=== PATIENT | female | born 1955 | race Hispanic/Latino ===

== ENCOUNTER 2016-12-06 17:20 | Inpatient (IN) ==
[2016-12-06] MEDS ORDERED: TYLENOL LIQUID PO ONE (18:04)
[2016-12-06 18:39] LABS: BASO% 0.3 % (0.0-0.8); EOS# 0.05 X1000 (0.0-0.7); EOS% 0.3 % (0.0-10.0); HEMOGLOBIN 12.8 g/dL (12.0-16.0); IMM GRAN# 0.04 X1000 (0.0-0.04); IMM GRAN% 0.2 % (0.0-0.5); LYMPH# 1.46 X1000 (1.2-3.4); LYMPH% 8.4 % (20.5-51.1); MANUAL DIFF NEEDED? NO; MCH 30.4 PG (27-31); MCHC 33.7 g/dL (33-37); MCV 90.3 FL (81-99); MONO# 0.62 X1000 (0.11-0.59); MONO% 3.6 % (1.7-9.3); MPV 9.9 FL (7.4-10.4); NEUT% 87.2 % (42.2-75.2); PLT 275 X1000 (130-400); RBC 4.21 XMIL (4.2-5.4)
[2016-12-06 18:54] LABS: URINE CULTURE NEEDED? NO; URINE MICRO REVIEW NEEDED? NO; URINE SOURCE CLEAN CATCH
[2016-12-06] MEDS ORDERED: NS 500 ML IV ONE (18:59)
[2016-12-06 19:00] LABS: BILIRUBIN URINE NEGATIVE (NEGATIVE); BLOOD URINE NEGATIVE (NEGATIVE); COLOR STRAW; GLUCOSE URINE NEGATIVE (NEGATIVE); LEUKOCYTES URINE NEGATIVE (NEGATIVE); NITRITE URINE NEGATIVE (NEGATIVE); PROTEIN URINE NEGATIVE (NEGATIVE); SP GRAVITY URINE 1.004; TURBIDITY URINE CLEAR (CLEAR); UROBILINOGEN URINE NORMAL (NORMAL)
[2016-12-06 19:01] LABS: UR EPITHELIAL CELLS <10 /HPF (<10); URINE BACTERIA NEGATIVE /HPF; URINE RBC <10 /HPF (<10); URINE WBC <10 /HPF (<10)
[2016-12-06 19:02] LABS: AGAP 14; ALBUMIN 4.6 g/dL (3.5-5.0); ALKALINE PHOSPHATASE 110 U/L (32-104); AMYLASE 54 U/L (20-200); BUN 10 mg/dL (8-22); CALCIUM 9.5 mg/dL (8.8-10.2); CHLORIDE 94 mmol/L (98-107); COSMO 271; GOT 21 U/L (10-30); GPT 19 U/L (10-36); LIPASE 27 U/L (13-60); POTASSIUM 3.4 mmol/L (3.5-5.1); SODIUM 134 mmol/L (136-145); TCO2 26 mmol/L (25-35); TOTAL BILIRUBIN 0.43 mg/dL (0.20-1.00); TOTAL PROTEIN 8.2 g/dL (6.3-8.3)
--- NOTE | 2016-12-06 19:38 | Diag Imaging Result Doc PS360 ---
RENAL STONE SEARCH - 12/06/2016 INDICATION: right flank pain, suprapubic pain, fever TECHNIQUE: A CT dose reduction protocol was used. COMPARISON: 02/21/2011 FINDINGS: No radiodense renal stones. No hydronephrosis or hydroureter. No bowel obstruction or inflammation. Uterus is absent. Urinary bladder and rectum are normal. There are moderate degenerative changes of the spine. No acute or suspicious bony lesion. IMPRESSION: No acute disease. Electronically signed by Ebenezer Resendez 12/06/2016 7:36 PM
[2016-12-06] MEDS ORDERED: ZOFRAN IV ONE ×2 (19:39→20:47)
[2016-12-06] MEDS ORDERED: DILAUDID ONE (20:33)
[2016-12-06] MEDS ORDERED: ZOFRAN ONE (20:33)
[2016-12-06] MEDS ORDERED: DILAUDID IV ONE (20:46)
[2016-12-06 21:38] LABS: UR AMPHETAMINES QUAL NONE DETECTED (NONE DETECT); UR BARBITUATES QUAL NONE DETECTED (NONE DETECT); UR BENZODIAZEPIN QUAL NONE DETECTED (NONE DETECT); UR CANNABINOIDS QUAL NONE DETECTED (NONE DETECT); UR COCAINE QUAL NONE DETECTED (NONE DETECT); UR METHADONE QUAL NONE DETECTED (NONE DETECT); UR OPIATES QUAL NONE DETECTED (NONE DETECT); UR OXYCODONE QUAL NONE DETECTED (NONE DETECT); UR PCP QUAL NONE DETECTED (NONE DETECT)
--- NOTE | 2016-12-06 21:44 | PROVIDER DOCUMENTATION ---
This chart was entered by Brad Busch Scribe, acting as scribe for Hang Zeng PA. HPI-Female /OB/Breast - General Chief Complaint: N/V/D Stated Complaint: VOMITING Time Seen by Provider: 12/06/16 18:31 Source: reports: patient Allergies/Adverse Reactions: Patient Allergies Allergy/AdvReac Type Severity Reaction Status Date / Time No Known Allergies Allergy Verified 02/28/16 19:37 Home Medications: Home Medication List Medication Instructions Recorded Confirmed Last Taken Type ATORVAstatin [Lipitor] 40 mg PO HS 11/10/12 12/07/16 2 Days Ago History Metformin [Glucophage] 2,000 mg PO HS 11/10/12 12/07/16 2 Days Ago History Zolpidem [Ambien] 10 mg PO QHS 11/10/12 12/07/16 1 Day Ago History Insulin Glargine [Lantus] 18 unit SUBQ QHS 04/24/14 12/07/16 2 Days Ago History Gabapentin 300 mg PO HS 10/26/14 12/07/16 2 Days Ago History Ondansetron [Ondansetron Odt] 4 mg PO Q4H PRN PRN #15 tab.rapdis 10/26/14 1 Day Ago Rx Butalb/APAP/Caffeine [Fioricet] 1 each PO Q4H PRN PRN #30 capsule 04/14/1512/07 Unknown Rx Malcolm/Polymyx/Dexameth Oph Oint 1 applicatn RIGHT EYE 4XDAY #1 tube 04/14/1512/07 Unknown Rx [Maxitrol Eye Ointment] - History of Present Illness-Female /OB Nature of Presenting Problem: Pt is a 60 yohf who presents to ER with CC of suprapubic pain with N/V/D x2 days. Pt reports that she has had a known UTI for the past 3 months. Pt states that she developed N/V 2 days ago and developed fever yesterday (temperature unspecified). Pt also complains of dysuria, but states that she had had for a while. No further complaints at this time. Does patient report she is ?: No Location of complaint: reports: right flank Radiation: reports: suprapubic Quality of Pain: reports: aching, burning Severity in ED: reports: moderate Onset/Duration: reports: 2 days ago Timing: reports: still present Urinary Symptoms: reports: dysuria Associated Symptoms: reports: back/neck pain (right flank), diarrhea, fever/ chills, malaise, nausea, vomiting. denies: anxiety, chest pain, constipation, dizziness, joint pain, muscle aches, weakness, trouble walking Similar Symptoms Previously?: Yes Recently seen or treated by another doctor?: No Review of Systems - Adult - REVIEW OF SYSTEMS - ADULT Constitutional: reports: fever. denies: chills, fatique, night sweats, weight gain, weight loss Eyes: reports: no symptoms reported Ears, Nose, Mouth & Throat: reports: no symptoms reported Cardiovascular: reports: no symptoms reported Respiratory: reports: no symptoms reported Gastrointestinal: reports: abdominal pain, diarrhea, nausea, vomiting. denies: hematemesis, constipation, difficulty swallowing, frequent heartburn, poor appetite, rectal bleeding Genitourinary: reports: dysuria, flank pain, frequent UTI's. denies: discharge , frequency, hematuria, hesitency, incontinence, urinary retention, urgency Musculoskeletal: reports: no symptoms reported Integumentary: reports: no symptoms reported Neurological: reports: headache/migraines. denies: ataxia, dizziness/vertigo, loss of balance, numbness, paresthesia, seizure, slurred speech, syncope, tremors Psychiatric: reports: no symptoms reported Endocrine: reports: no symptoms reported Hematologic/Lymphatic: reports: no symptoms reported Allergic/Immunologic: reports: no symptoms reported All Other Systems: Reviewed and Negative Past History - Adult - PAST MEDICAL HISTORY-ADULT Review of Records: reports: Old Records Reviewed, Nursing Assessment Review, Medications Reviewed Cardiovascular: reports: HTN, hyperlipidemia Endocrine/Immune: reports: Diabetes - PRIOR SURGERIES/PROCEDURES Surgical/Procedure History: reports: appendectomy, hysterectomy, BTL, , other (breast bx) - IMMUNIZATION STATUS Childhood Immunizations: See Nurse Assessment Flu Vaccine: See Nurse Assessment - FAMILY HISTORY Family History: reviewed, not pertinent Physical Exam-General - PHYSICAL EXAM-ADULT Initial Vital Signs Reviewed: Yes - CONSTITUTIONAL General Appearance: appears well, alert, moderate distress - EYES Eyes: PERRL/EOMI, pink conjunctivae. negative: sclera injected, scleral icterus - HEAD, EARS, NOSE, MOUTH & THROAT HENMT: moist mucous membranes, TMs normal, pharynx normal, dental decay, other ( OE in the left ear, had a cotton ball in the ear. Pt also has soft tissue swelling in the occiputal area of scalp. No signs of laceration). negative: angioedema - NECK Neck: full range of motion (has pain with flexion), normal inspection. negative : trachial deviation, tender lateral, thyromegaly - RESPIRATORY Respiratory: chest non-tender, lungs clear, normal breath sounds, no pleuratic chest pain, no respiratory distress, no accessory muscle use. negative: respiratory distress, decreased breath sounds, accessory muscle use, wheezing - CARDIOVASCULAR Cardiovascular: normal peripheral pulses, no edema, no gallop, no JVD, no murmur , tachycardia. negative: regular rate, rhythm, bradycardia, irregularly irregular - GASTROINTESTINAL (ABDOMEN) Abdominal Exam: soft, no organomegaly, no pulsatile mass, abnormal bowel sounds (mildly hyperactive), tenderness (suprapubic). negative: normal bowel sounds, non tender, McBurney's point tenderness, Kramer's sign - LYMPHATIC Lymphatic: negative: cervical node tenderness - MUSCULOSKELETAL Back Exam: no vertebral tenderness, CVA tenderness (right). negative: no CVA tenderness, vertebral tenderness Extremity: normal range of motion, non-tender, normal gait, no pedal edema, no calf tenderness, normal capillary refill, pelvis stable. negative: deformity, erythema, inflammation, swelling, tenderness - SKIN Integumentary: normal color, warm/dry - NEUROLOGIC Neurologic: grossly normal - PSYCHIATRIC Psych/Mental Status: normal thought content, normal thought process, oriented x 3, anxious, tearful. negative: normal mood/affect Progress - PLAN OF CARE/RESULTS Progress/Plan/Lab Results: Orders Category Date Time Status Admit - [facility] Routine AdmDCTranf 12/06/16 23:16 Ordered Activity - Strict Bedrest ORDERED Care 12/06/16 23:16 Active FSBS/Accucheck Result AC + HS Care 12/06/16 23:16 Active Intake and Output-Strict ORDERED Care 12/06/16 23:16 Active Saline Loc DIRECTED Care 12/06/16 17:50 Completed Vital Signs Order Q6-HR ASSESS Care 12/06/16 23:16 Active Z-Document. for Tele Applied ORDERED Care 12/06/16 23:16 Completed NPO Diet 12/06/16 17:[address] ABD/PELVIS W/ IV CONT ONLY [CT] Stat Exams 12/06/16 20:46 Completed HEAD W/O CONTRAST [CT] Stat Exams 12/06/16 20:46 Completed RENAL STONE SEARCH [CT] Stat Exams 12/06/16 18:59 Completed A1C HGB W EST AVG GLUCOSE [CHEM] Routine Lab 12/06/16 18:03 Completed AMYLASE [CHEM] Stat Lab 12/06/16 18:03 Completed BASIC METABOLIC PANEL [CHEM] Routine Lab 12/07/16 05:50 Completed BLOOD CULTURE [BLDCUL] Stat Lab 12/06/16 21:13 Results CBC WITH DIFF [HEME] Routine Lab 12/07/16 05:50 Completed CBC WITH ELECTRONIC DIFF [HEME] Stat Lab 12/06/16 18:03 Completed COMPREHENSIVE METABOLIC PANEL [CHEM] Stat Lab 12/06/16 18:03 Completed LACTATE, PLASMA [CHEM] Stat Lab 12/06/16 18:03 Completed LIPASE [CHEM] Stat Lab 12/06/16 18:03 Completed LIPID PROFILE W/CALC LDL [LIPIDS] Routine Lab 12/06/16 18:03 Completed MAGNESIUM [CHEM] Routine Lab 12/07/16 05:50 Completed TSH Routine Lab 12/07/16 05:50 Completed UDS [URINE DRUG SCREEN] Stat Lab 12/06/16 18:46 Completed URINALYSIS W/POSS RFLX CULT-1 [URINALYSIS] Stat Lab 12/06/16 18:46 Completed 0.9% Sodium Chloride Inj [Ns] 1,000 ml Med 12/06/16 23:16 Active IV 80 mls/hr 0.9% Sodium Chloride Inj [Ns] 500 ml Med 12/06/16 18:59 Discontinued IV 999 mls/hr Acetaminophen Liquid [Tylenol Liquid] Med 12/06/16 18:04 Discontinued 650 mg PO NOW ONE Acetaminophen [Tylenol] Med 12/06/16 23:16 Active 650 mg PO Q6H PRN PRN Butalbital/APAP/Caffeine [Fioricet] Med 12/06/16 23:16 Active 1 each PO Q4H PRN PRN CefTRIAXONE 1 GM/NS [Rocephin 1 gm/Ns] Med 12/07/16 09:00 Discontinued 1 gm in 50 ml IV Q24H CefTRIAXONE 2 GM/NS [Rocephin 2 gm/Ns] Med 12/06/16 22:10 Discontinued 2 gm in 50 ml IV NOW Enoxaparin [Lovenox] Med 12/06/16 23:16 Discontinued 40 mg SUBQ Q24H Hydromorphone [Dilaudid] Med 12/06/16 20:46 Discontinued 0.5 mg IV NOW ONE Hydromorphone [Dilaudid] Med 12/06/16 20:33 Discontinued 2 mg .ROUTE .STK-MED ONE Insulin Lispro [Humalog] Med 12/07/16 07:00 Active See Protocol SUBQ 0700,1100,1600,2100 Morphine Med 12/06/16 23:16 Active 2 mg IV Q4H PRN PRN Ondansetron [Zofran] Med 12/06/16 20:33 Discontinued 4 mg .ROUTE .STK-MED ONE Ondansetron [Zofran] Med 12/06/16 19:39 Discontinued 4 mg IV NOW ONE Ondansetron [Zofran] Med 12/06/16 20:47 Discontinued 4 mg IV NOW ONE Ondansetron [Zofran] Med 12/06/16 23:16 Active 4 mg IV Q4H PRN PRN Pantoprazole [Protonix] Med 12/06/16 23:16 Active 40 mg IV Q24H Potassium Chloride 20 Meq/Swi Med 12/06/16 23:16 Discontinued 20 meq in 100 ml IV Q2H Sodium Chloride 0.9% Med 12/06/16 23:16 Active 10 ml INJ DIRECTED Vancomycin 1 gm/Ns Med 12/06/16 22:09 Discontinued 1 gm in 250 ml IV NOW Telemetry [OM.EQ] Routine Oth 12/06/16 23:16 Active Transfer/Admit Order [TRANSFER] Routine Transfer 12/06/16 22:10 Completed Result Diagrams: 12/09/16 06:30 12/09/16 06:30 - REASSESSMENT Reassessment #1 Time Reassessed: 20:07 (Discussed with Dr. Hernandez. Pt is complaining of severe headache, and stating that something is coming out of her vaginal area ( speaking with JEREMY Butts). Continues ot ask for something for her terrible ROSE. Pt has normal UA and renal CT. Dr. Hoang recommends admission for evaluation with a head CT and abd/pelvis with contrast at samem time instead of doing one at a time. WIll empirically treat with abx as pt is tachycardic, febrile, with leukocytosis. ) Reassessment #2 Time Reassessed: 20:38 (Dr. Hernandez at bedside. Pt is urinating on herself and writhing in pain. Has progressed since coming to the ED. Thinks needs an LP but should discuss with Dr. Gan) Reassessment #3 Time Reassessed: 21:43 (Dr. Gan SAND CONDITIONER (Leonel) at bedside for evaluation. Waiting for reports from CT scan for admission. ) - CT/MRI 1 CT Study: Renal Stone Impression: See EMR Report CT Results: No acute disease - Dr. Resendez (Radiologist) - CONSULTS/PCP/HOSPITALIST Notification #1 *Consult/PCP/Hospitalist*: Time Discussed: 20:46 (Order head CT and CT abdomen/pelvis w contrast and his SAND CONDITIONER will come down to see the pt. ) Consult Disposition: Will see in ED, Admit Departure - Departure Date of Disposition Decision: 12/06/16 Time of Disposition Decision: 21:44 DIAGNOSIS: Tachycardia Incontinence Qualifiers: Incontinence type: urinary Urinary Incontinence type: unspecified incontinence Qualified Code(s): R32 - Unspecified urinary incontinence Febrile Qualifiers: Fever type: unspecified Qualified Code(s): R50.9 - Fever, unspecified Abdominal pain Qualifiers: Abdominal location: unspecified location Qualified Code(s): R10.9 - Unspecified abdominal pain Disposition: ADMITTED INPATIENT 09 Certified Medical Emergency: Emergent Condition: Fair - Critical Care Note This patient required my direct & personal management of CC.: No Attestation - Physician/ CALISTA Attestation Patient care was provided by Advanced Practice Provider:: Yes Advanced Practice Provider:: Hang Zeng Advanced Practice Provider documentation review:: The Mid-level provider documentation, treatment plan and medical decision making was reviewed by the physician who agrees with all treatment and medical decision making by the MLP. The physician spent face to face time with patient:: Yes Advanced Practice Provider documentation review:: The physician spent face to face time with this patient and agrees with all MLP documentation, treatment, and medical decision making by the MLP. See provider notes for further information. This chart was documented by the indicated scribe, (Brad Busch Maritza) and accurately reflects the services I performed and decisions made by me, Hang Zeng PA, as attested by the provider's signature.
--- NOTE | 2016-12-06 21:51 | Diag Imaging Result Doc PS360 ---
HEAD W/O CONTRAST - 12/06/2016 INDICATION: severe ROSE, ear pain, swelling occiput TECHNIQUE: A CT dose reduction protocol was used. COMPARISON: 04/14/2015 FINDINGS: The ventricles and sulci are normal in size and contour. No intracranial mass or hemorrhage. The skull is intact. The sinuses mastoids and middle ears are clear. IMPRESSION: Negative exam. Electronically signed by Ebenezer Resendez 12/06/2016 9:49 PM
--- NOTE | 2016-12-06 21:57 | Diag Imaging Result Doc PS360 ---
CT ABD/PELVIS W/ IV CONT ONLY - 12/06/2016 INDICATION: abdominal pain/vaginal pain, RLL/LLQ, febrile TECHNIQUE: A CT dose reduction protocol was used. COMPARISON: Noncontrast CT two hours ago FINDINGS: The lung bases are clear. The liver, gallbladder, spleen, pancreas, adrenals, and kidneys are normal. No bowel obstruction or inflammation. Uterus is absent. Urinary bladder and rectum are normal. There are moderate degenerative changes of the spine. No acute or suspicious bony lesion. IMPRESSION: Negative exam. Electronically signed by Ebenezer Resendez 12/06/2016 9:55 PM
[2016-12-06] MEDS ORDERED: VANCOMYCIN 1 GM/NS 1 GM/250 ML IVPB IV ONE (22:09)
[2016-12-06] MEDS ORDERED: ROCEPHIN 2 GM/NS 2 GM/50 ML IVPB IV ONE (22:10)
[2016-12-06] MEDS ORDERED: TYLENOL PO PRN (23:16)
[2016-12-06] MEDS ORDERED: ZOFRAN IV PRN (23:16)
[2016-12-06] MEDS ORDERED: LOVENOX SUBQ SCH (23:16)
[2016-12-06] MEDS ORDERED: FIORICET PO PRN (23:16)
[2016-12-06] MEDS ORDERED: VANCOMYCIN IV PER PHARMACY MISC SCH (23:30)
[2016-12-06 23:49] LABS: HDL 43 mg/dL (45-65); HEMOGLOBIN A1C 6.6 % (4.8-6.0); LDL 78 mg/dL; TRIGLYCERIDES 159 mg/dL (35-135); VLDL 32 mg/dL
[2016-12-07] MEDS: SODIUM CHLORIDE 0.9% INJ SCH ×2 (00:59→23:04)
[2016-12-07] MEDS: NS 1,000 ML IV SCH ×2 (00:59→17:14)
[2016-12-07] MEDS: PROTONIX IV SCH ×2 (00:59→23:04)
[2016-12-07] MEDS: POTASSIUM CHLORIDE 20 MEQ/SWI 20 MEQ/100 ML IVPB IV SCH ×2 (01:53→10:26)
[2016-12-07] MEDS: ZOVIRAX IV SCH ×3 (04:18→21:58)
[2016-12-07] MEDS: NS IV SCH ×3 (04:18→21:58)
[2016-12-07 06:19] LABS: MANUAL DIFF NEEDED? NO
[2016-12-07 06:27] LABS: BASO% 0.2 % (0.0-0.8); EOS# 0.02 X1000 (0.0-0.7); EOS% 0.1 % (0.0-10.0); HEMATOCRIT 35.3 % (37.0-47.0); HEMOGLOBIN 11.8 g/dL (12.0-16.0); IMM GRAN# 0.03 X1000 (0.0-0.04); IMM GRAN% 0.2 % (0.0-0.5); LYMPH% 15.2 % (20.5-51.1); MCH 30.5 PG (27-31); MCHC 33.4 g/dL (33-37); MCV 91.2 FL (81-99); MONO# 1.02 X1000 (0.11-0.59); MPV 9.7 FL (7.4-10.4); NEUT% 78.3 % (42.2-75.2); PLT 248 X1000 (130-400); RBC 3.87 XMIL (4.2-5.4)
[2016-12-07] MEDS: HUMALOG SUBQ SCH ×4 (06:39→22:01)
[2016-12-07 06:42] LABS: AGAP 13; BUN 7 mg/dL (8-22); CHLORIDE 105 mmol/L (98-107); COSMO 287; MAGNESIUM 1.5 mg/dL (1.5-2.7); POTASSIUM 3.8 mmol/L (3.5-5.1); SODIUM 144 mmol/L (136-145); TCO2 26 mmol/L (25-35)
[2016-12-07] MEDS: ROCEPHIN 1 GM/NS 1 GM/50 ML IVPB IV SCH (09:20)
[2016-12-07] MEDS: LOVENOX SUBQ SCH (09:20)
[2016-12-07] MEDS ORDERED: LOVENOX SUBQ SCH (10:00)
--- NOTE | 2016-12-07 12:03 | HISTORY AND PHYSICAL ---
DATE OF ADMISSION: 12/06/2016. CHIEF COMPLAINTS: 1. Abdominal pain. 2. Nausea and vomiting. HISTORY OF PRESENT ILLNESS: This is a 60-year-old, female who came into the emergency room tonight with a complaint of nausea, vomiting, and diarrhea x2 days. States that she has had a UTI over the past 3 months. Developed nausea and vomiting 2 days ago. Developed a fever yesterday with an unspecified temperature. She also complained of a dysuria but states that she has had that for some time. The main area of complaint of abdominal pain was right flank pain. She apparently started having a severe headache while in the emergency room. She has also had a back and neck pain, diarrhea, and malaise. In previous ER charting, it was noted that the patient spoke Eritrean well. The ER provider, was able use Eritrean and interviewed the patient. However, on my examination, she would only speak Yemeni and the ER staff had said that she had become quite delirious over her time in the ER. However, she was alert and oriented on arrival. She had a noted temperature of a 103 degrees on arrival to the emergency room. A CT of the abdomen and pelvis as well as a CT of the head were still pending at time of assessment. The ER staff also noted that she had become incontinent of urine in the emergency room. She has past medical history that includes hypertension, hyperlipidemia, diabetes mellitus. She will be treated empirically with antibiotics in the emergency room while CT scans are obtained. We also have blood cultures are pending. She will be admitted to the medical floor and inpatient, where she will likely stay for at least 48 hours. PAST MEDICAL HISTORY: 1. Diabetes mellitus insulin dependent. 2. Hypertension. 3. Hyperlipidemia. 4. Frequent abdominal pain with nausea and vomiting. PREVIOUS SURGICAL HISTORY: 1. Appendectomy. 2. Hysterectomy. 3. BTL. 4. . 5. Breast biopsy. SOCIAL HISTORY: Smokes around 8 cigarettes per day. Denies alcohol or illicit drug use or abuse. FAMILY HISTORY: The patient denied any type of a family history. Although it appears that her ability to speak Eritrean is limited, she does understand Eritrean and answered no to family history. ALLERGIES: No known drug allergies per previous charting. HOME MEDICATIONS: A list has not been verified. An order will be placed for nursing to reconcile home medications and will be started when appropriate. REVIEW OF SYSTEMS: Fourteen point review of systems conducted with the patient. Pertinent positives listed above in the HPI. All other systems were reviewed and found to be negative. PHYSICAL EXAMINATION: VITAL SIGNS: Temperature max 103 on arrival. Temperature after receiving Tylenol 98.4, pulse 93, respirations 18, blood pressure 152/66, oxygen saturation 99% on room air. GENERAL: A 60-year-old female, who according to medical charting does speak Eritrean well, is only speaking Yemeni at this point. She is oriented to person, place, and situation and vital signs are stable and she is in no acute distress at this time. HEENT: Head is atraumatic. Occipital portion of the head noted to have a large area of fluctuance. It is unknown if this is the patient's baseline, extraocular eye movements are intact. Pupils are equal, round, reactive to light. Sclerae is anicteric. Conjunctivae is pink. Oral mucosa is moist. NECK: Neck is supple. No nuchal rigidity noted. The patient was able to move chin to chest with ease. Trachea is midline. No carotid bruit on auscultation. CARDIAC: S1-S2 appreciated. No murmurs, gallops, rubs. LUNGS: Clear to auscultation bilaterally. No rhonchi, wheezes, rales. Symmetrical rise and fall respirations. ABDOMEN: Soft, nondistended. Diffusely tender to palpation. No rigidity. No rebound tenderness. Bowel sounds present in all 4 quadrants. Normoactive. No pulsatile mass. No organomegaly. EXTREMITIES: No clubbing, cyanosis, or edema. 2+ pedal pulses bilaterally. GENITOURINARY: No bladder distention. Patient incontinent of urine. Otherwise , deferred. NEUROLOGICAL: Cranial nerves 2-12 appear to be grossly intact. Oriented to person, place, and situation. Follows all commands. SKIN: Warm, diaphoretic, and intact. DIAGNOSTIC DATA: CT of the head: Negative examination showing that the sinuses and middle ears were clear. No acute intracranial process. CT of the abdomen and pelvis with contrast: Negative examination per Radiology report. LABORATORY DATA: CBC: WBC 17.43, hemoglobin 12.8, hematocrit 38, platelet count 275,000. Chem: Sodium 134, potassium 3.4, chloride 94, carbon dioxide 26, BUN 10, creatinine 0.6, glucose 166. Urine: Unremarkable. Toxicology screen: Negative. ASSESSMENT AND PLAN: 1. Febrile illness with leukocytosis of unknown etiology, differentials to include erysipelas of the scalp, possible bacterial meningitis. It is possible that it is also a viral illness with a stress reaction elevation in WBCs. The patient was given vancomycin 1 g in the emergency room as well as 2 g of Rocephin. We will treat empirically with Rocephin. Blood cultures are pending. If patient's condition continues to deteriorate or does not improve , consider a lumbar puncture. 2. Abdominal pain with nausea, vomiting, and diarrhea. A CT scan was found to be normal. The patient did state that she has had treatment for urinary tract infection over the past 3 months. However, a urine was unremarkable. We will give Zofran and p.r.n. morphine. We will consult GI Dr. Amaral for possible gastroparesis as cause for her frequent abdominal pain with nausea and vomiting, as she is an insulin-dependent diabetic. We will give Protonix 40 mg IV every 24 hours. 3. Insulin dependent diabetes mellitus. Check hemoglobin A1c. Start sliding scale insulin with fingersticks at meals and at bedtime. 4. Hypokalemia. Give 20 mEq of KCl IV. 5. Hyperlipidemia. Order has been placed for nursing to reconcile home medications. We will restart statin when patient is taking medications p.o. Check a lipid profile. 6. Further recommendations per patient clinical course. Dictated by DARYL Sanchez for Hernando Mata MD cc: DARYL Sanchez MD [facility]
[2016-12-07] MEDS ORDERED: MAGNESIUM SULFATE 2 GM/S.W.I. 2 GM/50 ML IVPB IV ONE (13:39)
--- NOTE | 2016-12-07 15:10 | PROGRESS NOTE ---
DATE: 12/07/2016 SUBJECTIVE: This patient is still complaining of abdominal pain. No fever, no chills but generalized myalgia. Abdominal pain is diffuse. No rebound. No signs of peritoneal irritation so far. She does not have photophobia or neck rigidity but she is complaining about neck pain. Kernig's and Brudzinski's signs are negative. As per the patient, she has been having this kind of problem for the past 3 days, also as per the patient, she has been having a UTI for the past 3 months but the urinalysis is pretty much unremarkable. OBJECTIVE: Vital Signs: Temperature 98.1 degrees, pulse 72, respiratory rate 19, blood pressure 132/51, O2 saturation 95% on room air. HEENT: Head normocephalic. No trauma. PERRLA. Neck: Supple. No JVD. No masses. Central trachea. Chest: Clear to auscultation. No wheezing. No rales. Abdomen: Soft, generalized tenderness to palpation. No rebound. Positive bowel sounds. Extremities: No edema. No clubbing. No cyanosis. It has painful to mobilization but this is likely secondary to generalized myalgia. Neurological: The patient is alert and oriented x3. No focal neurological deficits. No photophobia. LABORATORY: WBC 17, hemoglobin 11.8, hematocrit 35.3, platelet 248,000. Sodium 144, potassium 3.8, chloride 105, bicarbonate 26, BUN 7, creatinine 0.6, glucose 129, calcium 9, magnesium 1.5. ASSESSMENT AND PLAN: 1. Febrile illness with leukocytosis. This patient has been complaining of abdominal pain and generalized myalgia, she had fever upon admission on 12/06/2016. CT of the abdomen and pelvis and renal CT are negative for acute pathology. I do not have any specific source of infection. She does not have photophobia, she does not have signs of meningeal irritation. Kernig's and Brudzinski's are negative. If this patient's condition continues to deteriorate, I will consider a lumbar puncture and Infectious Disease Department evaluation. 2. Abdominal pain with nausea, vomiting and diarrhea. Today so far she has been she had just [address] of the abdomen and pelvis are negative as well as renal CT. Apparently she has been having problem with urinary tract infection for the past 3 months however her urinalysis was unremarkable. I will continue for now with the same antibiotics. Also this patient has been placed on acyclovir IV. Probably the admission doctor was thinking about viral meningitis. 3. Insulin-dependent diabetes mellitus. Hemoglobin A1c 6.6. I will continue with sliding scale insulin and pattern of blood sugar. 4. Hypomagnesemia. I will prescribe magnesium. 5. Hyperlipidemia. I will hold the statins for now. This patient is complaining of generalized muscle pain. cc: Hernando Mata MD
[2016-12-07 15:54] LABS: URINE MICRO REVIEW NEEDED? NO; URINE SOURCE VOIDED
[2016-12-07 16:00] LABS: BILIRUBIN URINE NEGATIVE (NEGATIVE); BLOOD URINE NEGATIVE (NEGATIVE); COLOR YELLOW; GLUCOSE URINE TRACE mg/dL (NEGATIVE); LEUKOCYTES URINE NEGATIVE (NEGATIVE); NITRITE URINE NEGATIVE (NEGATIVE); PROTEIN URINE TRACE mg/dL (NEGATIVE); SP GRAVITY URINE 1.019; TURBIDITY URINE CLEAR (CLEAR); UR EPITHELIAL CELLS <10 /HPF (<10); URINE BACTERIA NEGATIVE /HPF; URINE RBC <10 /HPF (<10); URINE WBC <10 /HPF (<10); UROBILINOGEN URINE NORMAL (NORMAL)
[2016-12-07] MEDS: VANCOMYCIN 1 GM/NS 1 GM/250 ML IVPB IV SCH (23:04)
[2016-12-08] MEDS: NS 1,000 ML IV SCH ×2 (04:20→14:02)
[2016-12-08] MEDS: NS IV SCH ×3 (04:27→19:51)
[2016-12-08] MEDS: ZOVIRAX IV SCH ×3 (04:27→19:51)
[2016-12-08 06:30] LABS: MANUAL DIFF NEEDED? NO
[2016-12-08 06:39] LABS: BASO% 0.4 % (0.0-0.8); EOS% 2.1 % (0.0-10.0); HEMATOCRIT 34.6 % (37.0-47.0); HEMOGLOBIN 11.5 g/dL (12.0-16.0); IMM GRAN# 0.02 X1000 (0.0-0.04); IMM GRAN% 0.2 % (0.0-0.5); LYMPH# 2.41 X1000 (1.2-3.4); LYMPH% 24.8 % (20.5-51.1); MCH 30.6 PG (27-31); MCHC 33.2 g/dL (33-37); MONO# 0.67 X1000 (0.11-0.59); MONO% 6.9 % (1.7-9.3); MPV 9.8 FL (7.4-10.4); NEUT% 65.6 % (42.2-75.2); PLT 232 X1000 (130-400); RBC 3.76 XMIL (4.2-5.4)
[2016-12-08] MEDS: HUMALOG SUBQ SCH ×4 (06:53→21:09)
[2016-12-08 06:55] LABS: AGAP 10; BUN 6 mg/dL (8-22); CALCIUM 8.9 mg/dL (8.8-10.2); CHLORIDE 105 mmol/L (98-107); COSMO 282; POTASSIUM 3.8 mmol/L (3.5-5.1); SODIUM 142 mmol/L (136-145); TCO2 27 mmol/L (25-35)
[2016-12-08] MEDS: LOVENOX SUBQ SCH (07:59)
[2016-12-08] MEDS: ROCEPHIN 1 GM/NS 1 GM/50 ML IVPB IV SCH ×2 (07:59→18:27)
--- NOTE | 2016-12-08 15:56 | Diag Imaging Result Doc PS360 ---
LUMBAR SPINE 2-VIEWS - 12/08/2016 INDICATION: low back pain TECHNIQUE: COMPARISON: 07/31/2012 FINDINGS: Alignment is anatomic. Vertebral body heights and intervertebral disc spaces are preserved. There are some minimal degenerative osteophytes diffusely. No fracture or subluxation. No bony erosions. IMPRESSION: Minimal degenerative disc disease. No acute disease or change from prior. Electronically signed by Ebenezer Resendez 12/08/2016 3:54 PM
--- NOTE | 2016-12-08 16:04 | PROGRESS NOTE ---
DATE: 12/08/2016 SUBJECTIVE: This patient is still complaining of abdominal pain, no fever, no chills but generalized myalgia. For the episodes of diarrhea I will ask for C. difficile colitis stool studies to rule it out. She is not complaining of photophobia or neck rigidity but the neck is painful though, as well as her back and legs. Kernig and Brudzinski signs are negative. As per the patient she has been having some kind of UTIs for the past 3 months and she has been treated but she does not remember if she was not using antibiotics or not but urinalysis doing twice is pretty much unremarkable. OBJECTIVE: Vital Signs: Temperature 98.4 degrees, pulse 61, respiratory rate 18, blood pressure 134/61, oxygen saturation 98 on room air. HEENT: Head normocephalic. No trauma. PERRLA. Neck: Supple. JVD no masses. Central trachea. Chest: Clear to auscultation. No wheezing. No rales. Abdomen: Soft, generalized tenderness to palpation. No rebound. Positive bowel sounds. Extremities: No edema. No clubbing. No cyanosis. Painful to mobilization at the level of the lower extremities but this is likely related to generalized myalgia. Neurological: The patient is alert and oriented x3. No photophobia. She can move all 4 extremities. LABORATORY: WBC 9.7, hemoglobin 11.5, hematocrit 34.6, platelets 232,000. Sodium 142, potassium 3.8, chloride 105, bicarbonate 27, BUN 6, creatinine 0.6, glucose 128, calcium 8.9. ASSESSMENT AND PLAN: 1. Febrile illness with leukocytosis, no more fever and the leukocytes are normal today. She had fever upon admission on 12/06/2016. CT of the abdomen, pelvis and renal CT are negative for acute pathology. I do not have any specific source of infection. She does not have photophobia and no signs of meningeal irritation but probably I will consider lumbar puncture and infectious disease department puncture if we have a new episode of fever. I have consulted infectious disease department to evaluate this patient. 2. Abdominal pain, nausea, vomiting and diarrhea. Apparently she just had 1 bowel movement. I will ask for C. difficile to rule out colitis. 3. Type 2 diabetes. Hemoglobin A1c is 6.6, continue with sliding scale insulin and pattern blood sugar. 4. Hypomagnesemia resolved. 5. Hyperlipidemia. I will hold statin for now. Patient is complaining of generalized muscle pain. 6. Physical deconditioning. I will consult physical therapy for this patient. cc: Hernando Mata MD
--- NOTE | 2016-12-08 20:32 | CONSULTATION ---
DATE OF CONSULTATION: 12/08/2016 The patient can only speak very minimal B[place]an. Therefore the patient's history was taken from a review of the data in the computer. CONCLUSION: The patient was admitted to the hospital. She has been having fever, her 2 main places that she was having pain appear to be headache and also low back pain. The etiology of the patient's illness is not certain to me at this time. Given her complaint of headache and fever I think a central nervous system infection such as meningitis could be a consideration, also because of her low back pain I think osteomyelitis of the spine or spinal epidural abscess could be the cause of her pain. RECOMMENDATIONS: I agree with treating the patient with vancomycin, acyclovir and Rocephin. I increased the dose of Rocephin to 1 g IV every 12 hours. I ordered an x-ray of her spine and also I have ordered a consult with Dr. Jennings to see the patient and to do a lumbar puncture. DISCUSSION: As mentioned above, the patient speaks only minimal [place]an. She was complaining of nausea and vomiting according to review of the chart. She also had fever. She had some right flank pain as well as pain on the right side of her abdomen as well. She has been having fever, it was up to 103 degrees when she came in the emergency room. The patient's CBC with white count of 9730, hemoglobin 11.5 and platelet count 232,000. Creatinine 0.6. GFR is greater than 60. Liver function studies are normal. Urinalysis was negative for protein and bacteria, blood cultures thus far are sterile. The patient had CT scan of the abdomen and pelvis and had found no abnormalities. Patient's CBC showed a white count of 9730, hemoglobin 11.5 and platelet count 232,000. Creatinine is 0.6. GFR is greater than 60. Liver function studies are normal. Urinalysis was negative for bacteria and white cells. Blood cultures are negative. CT scan of the abdomen, pelvis and head all were negative. PAST MEDICAL HISTORY: Positive for diabetes mellitus, hypertension, hyperlipidemia, frequent abdominal pain associated with nausea and vomiting. PRIOR SURGICAL HISTORY: Included an appendectomy, hysterectomy, bilateral tubal ligation, C- section and breast biopsy. SOCIAL HISTORY: The patient smokes 8 cigarettes a day. She denied alcohol use or drug abuse. FAMILY HISTORY: Negative. ALLERGIES: There were no known allergies. HOME MEDICATIONS: Ondansetron, metformin, insulin, gabapentin, Fioricet, Lipitor and Ambien. DIRECTOR OF ATHLETICS HISTORY: Unable to obtain. REVIEW OF SYSTEMS: Unable to be obtained. PHYSICAL EXAMINATION: Vital signs: Temperature is 98.4 degrees, pulse 61, respirations 18, blood pressure 134/61. Generally: This is a somewhat ill-appearing middle-aged female. She is in no acute distress. Head, eyes, ears, nose, and throat: She can hear my spoken words and see near objects. There is no drainage coming from the nose or ears. Neck: There was no true meningismus but there was pain with passive range of motion of the neck. The patient is 5 feet 2 inches tall, weighs 103 pounds. General: This is a chronically ill- appearing, middle-aged female. She is in no acute distress. Head, eyes, ears, nose, and throat: She does not speak [place]an but was awake and she did follow some request to move her extremities. The patient can move all of her extremities Neck: No meningismus although she did complain of pain with passive range of motion and movement of the neck. Lungs: Clear to auscultation. Cardiovascular: Regular heart rate. Abdomen: Soft and nontender. Spine: The lumbar sprain was very tender but I did not see any swelling or drainage there. Neurologic: Patient is awake. She can move her extremities. There is no tremor. Integument: No rash noted. Thank you for the consult. cc: Martinez Nunez MD
--- NOTE | 2016-12-08 21:06 | CONSULTATION ---
DATE OF CONSULTATION: 12/08/2016 REASON FOR CONSULTATION: Abdominal pain, nausea and vomiting. HISTORY OF PRESENT ILLNESS: Ms. Henderson is a 60-year-old female who was admitted on 12/06/2016 with epigastric pain along with nausea, vomiting. She has been having this the last 2 days. She localized the pain to the epigastric region. She denies any history of previous peptic ulcer disease. She denies any history of any vomiting blood. She was noted to have 103 fever in the ER, but that has normalized after treatment with vancomycin and Rocephin. She continues Rocephin now. Her infectious disease workup is currently ongoing with the primary care team. She also has a prior history of UTI for almost 3 months, but on this admission her urinalysis is clear. She does complain of intermittent changes in bowel habits with constipation and diarrhea. She has not had a bowel movement today. She denies noticing any blood in her stools. PAST MEDICAL HISTORY: 1. Diabetes mellitus, insulin dependent. 2. Hypertension. 3. Hyperlipidemia. 4. Abdominal pain with nausea, vomiting, vomiting intermittent. 5. Urinary tract infections. PAST SURGICAL HISTORY: Appendectomy, hysterectomy, bilateral tubal ligation, C- section, breast biopsy. SOCIAL HISTORY: She smokes 8 cigarettes a day. Denies any alcohol abuse or illicit drug abuse. FAMILY HISTORY: Denies any family history of stomach problems. ALLERGIES: No known drug allergies per charting. MEDICATIONS: Medications in the hospital were reviewed. HOME MEDICATIONS: 1. Metformin 2000 mg p.o. at bedtime. 2. Lipitor 40 mg daily at bedtime. 3. Zolpidem 10 mg p.o. at bedtime. 4. Lantus 18 units subcutaneous at bedtime. 5. Gabapentin 300 mg p.o. at bedtime. 6. Zofran 4 mg q.4 hours as needed. 7. Visvfnfqju-Oczqbgv-ktfipqxp 1 capsule every 4 hours as needed. 8. Maxitrol eye ointment to the right eye 4 times daily. MEDICATIONS IN THE HOSPITAL: 1. Tylenol. 2. Acyclovir. 3. Butalbital/Tylenol/caffeine 1 tablet p.o. every 4 hours as needed. 4. Lovenox 30 mg 2 tablets every day. 5. Humalog sliding scale. 6. Iron C b.i.d. 7. Warfarin 2 mg IV every 4 hours. 8. Multivitamins once daily. 9. IV fluids at 80 mL/hours. 10. Zofran 4 mg IV every 4 hours. 11. Protonix 40 mg IV q.8 hours. 12. Vancomycin per pharmacy dosing. 13. Ceftriaxone 1 g every 12 hours. 14. Magnesium sulfate, given 1 dose. REVIEW OF SYSTEMS: Denies any current fever, although she had fever at home. She does complain of epigastric pain and nausea, vomiting and episodic diarrhea and constipation. She has insulin- dependent diabetes mellitus. She denies any history of vomiting blood or passing blood in the stools. She does have history of Urinary tract infections. She denies any neurologic complaints. PHYSICAL EXAMINATION: Vital Signs: Temperature 98.4, pulse rate 61, respiratory rate of rate 18, blood pressure 134/61, saturating 98% on room air. Body weight of 103 pounds 12.8 ounces, BMI 19 kg/m2. General Appearance: Moderately build, moderately nourished, lying in bed in no acute distress. HEENT: Mild pallor. No icterus. Pupils equal, react to light. Neck: Neck is supple. Chest: Decreased breath sounds. Cardiovascular: Regular rhythm. No murmur. Abdomen: Discomfort in epigastric region. No rebound or guarding. Bowel sounds are present. Extremities: No cyanosis, clubbing or edema. Neurologic: She is alert and awake and answers simple questions. She speaks a mix of Sudanese and Italian and was able to answer questions appropriately. LABORATORY: White count 9.73, hemoglobin and hematocrit is 11.5 and 34.6, platelet count of 232,000, MCV of 92. Her sodium 142, potassium 3.8, chloride 105, bicarb 27, INR 10, BUN of 6, creatinine 1.6, glucose of 120. Calcium is 8.9, total protein 8.2, albumin of 4.6, AST 21, ALT 19, alkaline phosphatase 110. Amylase 51, lipase is 27, lactate 1.4, triglycerides 189, HDL 43, TSH 2.72. Urinalysis showing trace protein, otherwise negative. Toxicology screen is negative. IMAGING: She had abdominal and pelvic CT scan done on 12/06 that showed the liver, gallbladder, spleen, pancreas, adrenals and kidneys are normal. No bowel obstruction or inflammation. The uterus is absent. Moderate degenerative changes of the spine. No acute or suspicious bony lesions noted. IMPRESSION AND PLAN: 1. Epigastric pain along with nausea, vomiting, insulin-dependent. 2. Diarrhea versus constipation. 3. Fever of 103 on admission, which is normalized with 1 dose of vancomycin and continue Rocephin, of unclear etiology. 4. Lumbar spine arthritis. 5. Mild anemia. 6. Diabetes mellitus, insulin dependent. RECOMMENDATIONS: 1. We will start her on Protonix IV once daily. 2. We will keep her on a clear liquid diet for now until the pain resolves. 3. We will start on Iron C b.i.d. mL once daily. 4. We will schedule patient for esophagogastroduodenoscopy tomorrow under anesthesia. The risks, benefits, indications, alternatives were explained to the patient and all questions answered. 5. If esophagogastroduodenoscopy is negative, patient may need a colonoscopy. 6. We will follow up on the infectious disease workup. 7. The patient was encouraged to keep a good control of her diabetes. Her HbA1c currently 6.6, which is good. The patient is also instructed to avoid use any nonsteroidal antiinflammatory drugs at home. 8. We will also check on the stool studies. Blood cultures were negative x2 since admission. cc: MD Hernando Sparrow MD Eston G. Norwood III, MD Leroy F. Harris, MD MTDD
[2016-12-08] MEDS: ICAR-C PO SCH (21:17)
[2016-12-08] MEDS: SODIUM CHLORIDE 0.9% INJ SCH (23:04)
[2016-12-08] MEDS: VANCOMYCIN 1 GM/NS 1 GM/250 ML IVPB IV SCH (23:04)
[2016-12-08] MEDS: PROTONIX IV SCH (23:04)
--- NOTE | 2016-12-09 03:43 | CONSULTATION ---
DATE OF CONSULTATION: 12/08/2016 ADDENDUM: PHYSICAL EXAMINATION: Vital Signs: Temperature is 98.4, pulse 61, respirations 18, blood pressure 134/61. General: This is an ill-appearing, middle-aged female. She is in no acute distress. Head, eyes, ears, nose, and throat: She can hear my spoken words. She can see near objects. No drainage was noted from the nose or ears. Neck: There was pain with passive range of motion of the neck. The muscles were not in spasm. Thorax: No increased AP diameter of the chest. Lungs: Clear to auscultation. Cardiovascular: Heart rate is regular. Abdomen: Soft and nontender. Back: The patient's lumbar spine was tender, but not swollen. Neurologic: Patient is alert. She can move her extremities. There is no tremor. Integument: No rash noted. Thank you for the consult. cc: Martinez Nunez MD
[2016-12-09] MEDS: NS 1,000 ML IV SCH ×3 (03:44→23:17)
[2016-12-09] MEDS: NS IV SCH ×3 (03:45→20:33)
[2016-12-09] MEDS: ZOVIRAX IV SCH ×3 (03:45→20:33)
[2016-12-09] MEDS: ROCEPHIN 1 GM/NS 1 GM/50 ML IVPB IV SCH ×2 (05:01→18:21)
[2016-12-09] MEDS: HUMALOG SUBQ SCH ×4 (06:23→20:34)
[2016-12-09 06:50] LABS: MANUAL DIFF NEEDED? NO
[2016-12-09 06:56] LABS: BASO% 1.1 % (0.0-0.8); EOS# 0.29 X1000 (0.0-0.7); EOS% 3.9 % (0.0-10.0); HEMATOCRIT 34.4 % (37.0-47.0); HEMOGLOBIN 11.7 g/dL (12.0-16.0); LYMPH# 2.48 X1000 (1.2-3.4); LYMPH% 33.1 % (20.5-51.1); MCH 30.8 PG (27-31); MCV 90.5 FL (81-99); MONO# 0.69 X1000 (0.11-0.59); MONO% 9.2 % (1.7-9.3); NEUT% 52.7 % (42.2-75.2); PLT 259 X1000 (130-400)
[2016-12-09 07:22] LABS: AGAP 10; BUN 6 mg/dL (8-22); CALCIUM 9.1 mg/dL (8.8-10.2); CHLORIDE 107 mmol/L (98-107); COSMO 286; POTASSIUM 3.4 mmol/L (3.5-5.1); SODIUM 144 mmol/L (136-145); TCO2 27 mmol/L (25-35)
[2016-12-09] MEDS ORDERED: ATIVAN IV ONE (09:32)
[2016-12-09 10:08] LABS: INR 1.04; PROTIME 10.9 Seconds (9.2-11.7)
[2016-12-09] MEDS: CENTRUM SILVER PO SCH (10:13)
[2016-12-09] MEDS: LOVENOX SUBQ SCH (10:14)
[2016-12-09] MEDS: ICAR-C PO SCH ×2 (10:14→20:34)
--- NOTE | 2016-12-09 11:09 | Diag Imaging Result Doc PS360 ---
EXAM: MRI BRAIN W W/O CONTRAST HISTORY: headaches, visual disturbance TECHNIQUE: MRI of the brain with and without gadolinium, T1 axial, sagittal, and FSPGR post gadolinium axial with coronal reformations, T2, FLAIR, DWI axial. COMMENT: There is no evidence of restricted diffusion. There is no evidence of bleed or abnormal extra-axial fluid collection. Some slight iron deposition is present in the basal ganglia. There are few small punctate areas of increased T2-weighted signal intensity in the subcortical white matter in the frontal and parietal lobes bilaterally and also near the atrium of the lateral ventricle on both sides particularly the left. There is an empty sella. There are no previous MRI studies of the brain. IMPRESSION: Microvascular white matter changes. No evidence of acute disease. Electronically signed by Steven Lopez 12/09/2016 11:07 AM
--- NOTE | 2016-12-09 11:10 | PROGRESS NOTE ---
DATE: 12/06/2016 SUBJECTIVE: This patient is still complaining of abdominal pain but compared with yesterday, she feels better. Infectious Disease Department evaluated this patient. They are asking for an LP, and probably she will have an endoscopy done today. I do not have any source of infection and she denied fever or chills. OBJECTIVE: Vital Signs: Temperature 98.3 degrees, pulse 58, respiratory rate 20, blood pressure 137/58, oxygen saturation 100% on room air. HEENT: Head normocephalic. No trauma. PERRLA. Neck: Supple. No JVD. No masses. Central trachea. Chest: Clear to auscultation. No wheezing. No rales. Abdomen: Soft, tender to palpation, generalized tenderness to palpation. No rebound. Positive bowel sounds. Extremities: No edema. No clubbing. No cyanosis. Painful to mobilization at the level of the lower extremities, but this is likely related to generalized myalgia. Neurological: The patient is alert and oriented x3. No photophobia. She can move all 4 extremities. LABORATORY DATA: WBC 7.5, hemoglobin 11.7, hematocrit 34.4, platelets 259,000, sodium 144, potassium 3.4, chloride 107, bicarbonate 27, BUN 6, creatinine 0.5 glucose 130, calcium 9.1. ASSESSMENT AND PLAN: 1. One fever vital illness with leukocytosis, no more fever and the leukocytosis is normal today. She had fever upon admission on 12/05/2016. CT of the abdomen, pelvis, and renal CT are negative for acute pathology. I do not have any specific source of infection. She does not have photophobia or any sign of meningeal irritation, but we are going to get a lumbar puncture done today. Infectious Disease Department evaluated this patient and they asked for the LP. 2. Abdominal pain, nausea and vomiting, this patient is not complaining of nausea and vomiting at this moment. She is going to get an endoscopy done today probably. 3. Type 2 diabetes. Hemoglobin A1c is 6.6, which is good for her. Continue with sliding scale insulin and pattern of blood sugar. 4. Hyperlipidemia. Continue with the same management. 5. Physical deconditioning. Physical therapy is on board. cc: Hernando Mata MD
[2016-12-09] MEDS: MORPHINE IV PRN (11:16)
--- NOTE | 2016-12-09 12:14 | CONSULTATION ---
DATE OF CONSULTATION: 12/09/2016 REASON FOR CONSULT: The patient is seen in consultation at the request of Dr. Nunez for evaluation of headache and with concerns of meningitis and with request for lumbar puncture. HISTORY OF PRESENT ILLNESS: A professional electric hoist operator was used via the telephone for this interview. The patient is a 60-year-old right-handed, [facility] female who presented with complaints of headache,neck pain, stomach pain, back pain, myalgias and fever with nausea vomiting and diarrhea. The patient reports that on Friday she began having all these symptoms. She also says that she has headaches off and on for a long time as well as the pain in the various areas. She says she has tried to talk to her family physician about this, but she is unable to communicate these symptoms clearly because they never use an electric hoist operator. The current headache is more intense than it has been in the past but otherwise, feels about the same. She has some photophobia and phonophobia as well as nausea and vomiting. At home in the past she has taken Tylenol, Aleve or Motrin to help with the headaches. She feels she has some slight confusion currently. She also feels like her vision is not as clear as it has been. She is being worked up by Infectious Disease as well as GI. On admission, she had a temperature of 103 degrees and an elevated white blood cell count, both of which have improved. She has gotten some antibiotics since her admission. Urinalysis showed trace protein, otherwise clear. Toxicology was negative. She has not had any focal weakness or sensory changes. PAST MEDICAL HISTORY: Type 2 diabetes, headaches, high blood pressure, hyperlipidemia, appendectomy, hysterectomy, tubal ligation, , breast biopsy. SOCIAL HISTORY: She is a current smoker. No alcohol or illicit drug use. Retired from her job here due to her poorly controlled diabetes she says. FAMILY HISTORY: No history of strokes. Positive for type 2 diabetes. ALLERGIES: No known drug allergies per the patient. MEDICATIONS: Notable for acyclovir, Rocephin, vancomycin and p.r.n. morphine and Fioricet. REVIEW OF SYSTEMS: Balance of 12 was conducted and is otherwise negative except that detailed in the HPI. PHYSICAL EXAMINATION: Temperature 103 degrees Fahrenheit on admission, now afebrile, blood pressure 137/58 and has been as high as 152 systolic, pulse 58, respiratory rate 20. Thin female sitting up in bed, eating. No acute distress. Neck: Supple. No definite meningismus. Pulses are intact. No edema. Skin: Dry and intact. No lesions, no clubbing, no cyanosis. Nonlabored respiration which are clear without wheezes. Awake and alert. Oriented. Attention and concentration intact. Language intact. Recent and remote memory intact. PERRL, 1.5 mm OU, conjugate gaze. Ocular movements are intact. Face symmetric with equal activation. Facial sensation intact. Tongue protrudes midline. Palate elevates symmetrically. Shoulder shrug is full. No drift. She requires significant encouragement on strength testing, though there appears to be no focal weakness. No evidence of incoordination. Reflexes symmetric, 1-2+ throughout, absent ankle jerks bilaterally. Toes mute. No clonus. No evidence of overt sensory disturbance. DIAGNOSTICS: Noncontrasted head CT 12/06/2016 was personally reviewed. No acute findings. Abdomen pelvis CT was negative exam by report. Renal CT, no acute disease per report. White count 17.4 on admission, currently normal. Sodium 144, potassium 3.4, BUN 6 creatinine 0.5, hemoglobin A1c 6.6. Alkaline phosphatase 110, AST, ALT and bilirubin normal. Urinalysis trace protein. Toxicology negative. ASSESSMENT AND PLAN: This is a 60-year-old right-handed, [facility] female who is admitted with pain complaints in multiple areas including headache and neck pain, possible mild confusion, with an elevated white count and fever on admission, now normalized since antibiotics have been started. There is no current source of infection on the workup that has been done thus far. Her exam is nonfocal. A noncontrasted head CT was unremarkable. Will order MRI of the brain w/wo contrast for further evaluation of her headache symptoms. Will also be able to see evidence of PRES on MRI, though I think it is less likely since this would not explain her other presenting symptoms. I ordered coag studies as well in preparation for a bedside lumbar puncture. This is to detect evidence of possible meningitis, though again, this alone would not explain her other presenting symptoms. Consent was obtained while the electric hoist operator was on the phone and is in the chart. Thank you for this consultation. cc: MD OUMAR Haynes
[2016-12-09] MEDS ORDERED: DIPRIVAN 1% ONE (13:54)
[2016-12-09] MEDS ORDERED: XYLOCAINE-MPF 2% ONE (16:09)
--- NOTE | 2016-12-09 18:05 | PROGRESS NOTE ---
DATE: 12/09/2016 PRESENT ILLNESS: The patient has been having fever and also she complained of headache and low back pain. MEDICATIONS: Patient is receiving a combination of acyclovir, Rocephin and vancomycin for possible central nervous system infection mainly by bacteria or herpes simplex virus. PHYSICAL EXAMINATION: Vital Signs: Temperature is 98.2 degrees, pulse 50, respirations 20, blood pressure 168/81. General: The patient was lethargic. She had just come back from esophagogastroduodenoscopy for which she received sedation. Head, eyes, ears, nose, and throat: No drainage noted from the nose or ears. Neck: No meningismus. Lungs: Clear to auscultation. Cardiovascular: Heart rate is regular. Abdomen: Soft and nontender. LAB AND X-RAY STUDIES: Her stool for Clostridium difficile toxin and blood cultures are sterile. Lumbar spine CT shows degenerative joint disease. Patient's CBC shows a white count of 7500, hemoglobin 11.7 and platelet count 259,000. Creatinine 0.5. GFR is greater than 60. An MRI of the brain shows microvascular white matter changes. ASSESSMENT AND PLANS: The patient I think has a central nervous system infection or some problem in her lumbar spine which we have not yet discovered. Earlier today the patient refused having a lumbar puncture. My plan is to continue the current medications namely vancomycin, acyclovir and Rocephin. As mentioned above, Dr. Dumont saw the patient but she refused to have an LP performed. COMORBIDITIES: Include diabetes mellitus and cigarette smoking. cc: Martinez Nunez MD
[2016-12-09 18:11] LABS: IRON SATURATION 20 %; TIBC 316 ug/dL; TOTAL IRON 62 ug/dL (49-151); UNBOUND IRON 254 ug/dL (112-346)
[2016-12-09] MEDS: SODIUM CHLORIDE 0.9% INJ SCH (20:33)
[2016-12-09] MEDS ORDERED: VANCOMYCIN 1 GM/NS 1 GM/250 ML IVPB IV SCH (22:00)
[2016-12-09] MEDS: PROTONIX IV SCH (23:16)
[2016-12-09] MEDS: VANCOMYCIN 1,200 MG in NS 250 ML IV SCH (23:16)
[2016-12-10] MEDS: NS 1,000 ML IV SCH ×3 (04:08→16:36)
[2016-12-10] MEDS: ROCEPHIN 1 GM/NS 1 GM/50 ML IVPB IV SCH ×2 (05:00→16:36)
[2016-12-10] MEDS: ZOVIRAX IV SCH ×3 (05:34→20:59)
[2016-12-10] MEDS: NS IV SCH ×3 (05:34→20:59)
[2016-12-10 06:40] LABS: BASO% 1.1 % (0.0-0.8); EOS# 0.21 X1000 (0.0-0.7); EOS% 3.2 % (0.0-10.0); HEMATOCRIT 34.5 % (37.0-47.0); HEMOGLOBIN 11.6 g/dL (12.0-16.0); LYMPH# 2.17 X1000 (1.2-3.4); LYMPH% 32.9 % (20.5-51.1); MANUAL DIFF NEEDED? YES; MCH 30.3 PG (27-31); MCHC 33.6 g/dL (33-37); MCV 90.1 FL (81-99); MONO# 0.52 X1000 (0.11-0.59); MONO% 7.9 % (1.7-9.3); MPV 9.8 FL (7.4-10.4); NEUT% 54.9 % (42.2-75.2); PLT 253 X1000 (130-400); RBC 3.83 XMIL (4.2-5.4)
[2016-12-10 06:45] LABS: AGAP 12; ALBUMIN 3.5 g/dL (3.5-5.0); ALKALINE PHOSPHATASE 88 U/L (32-104); BUN 6 mg/dL (8-22); CALCIUM 9.1 mg/dL (8.8-10.2); CHLORIDE 105 mmol/L (98-107); COSMO 284; GOT 19 U/L (10-30); GPT 20 U/L (10-36); POTASSIUM 3.5 mmol/L (3.5-5.1); SODIUM 143 mmol/L (136-145); TCO2 26 mmol/L (25-35); TOTAL BILIRUBIN 0.23 mg/dL (0.20-1.00); TOTAL PROTEIN 7.3 g/dL (6.3-8.3)
[2016-12-10 07:17] LABS: BANDS 4 % (0-1); EOS 4 % (1-10); HYPOCHROM 1+; LYMPHS 38 % (21-51)
--- NOTE | 2016-12-10 09:06 | Diag Imaging Result Doc PS360 ---
GASTRIC EMPTYING - 12/10/2016 INDICATION: n/v, abd pain, DM TECHNIQUE: 553 uCi of labeled solid food was ingested COMPARISON: None FINDINGS: There is essentially no gastric emptying during the exam. The T1 half of gastric emptying is 1100 minutes. IMPRESSION: Severe gastroparesis. Electronically signed by Ebenezer Resendez 12/10/2016 9:03 AM
[2016-12-10] MEDS: HUMALOG SUBQ SCH ×4 (09:29→21:04)
[2016-12-10] MEDS: ICAR-C PO SCH ×2 (11:12→20:58)
[2016-12-10] MEDS: PRINIVIL PO SCH (11:12)
[2016-12-10] MEDS: CENTRUM SILVER PO SCH (11:12)
[2016-12-10] MEDS: VANCOMYCIN 1,200 MG in NS 250 ML IV SCH ×2 (11:12→22:44)
[2016-12-10] MEDS: MORPHINE IV PRN ×2 (11:51→16:43)
--- NOTE | 2016-12-10 15:18 | PROGRESS NOTE ---
DATE: 12/10/2016 SUBJECTIVE: This patient is still complaining of abdominal pain, neck pain and headache, also generalized myalgia, no fever, no chills. Mild nausea, no vomiting. OBJECTIVE: Vital Signs: Temperature 97.9 degrees, pulse 55, respiratory rate 20, blood pressure 153/70, O2 saturation 98 on room air. HEENT: Head normocephalic. No trauma. PERRLA. Neck: Supple. No JVD. No masses. Central trachea. Chest: Clear to auscultation. No wheezing. No rales. Abdomen: Soft, generalized tenderness to palpation but mostly at the level of the right side of the abdomen. No rebound. Positive bowel sounds. Extremities: No edema. No clubbing. No cyanosis. Painful to mobilization at the level of the lower extremity. This is likely related to myalgia. Neurological: The patient is alert and oriented x3. She can move all 4 extremities. No signs of meningeal irritation. LABORATORY: WBC 6.5, hemoglobin 11.6, hematocrit 34.5, platelets 253,000. Sodium 143, potassium 3.5, chloride 105, bicarbonate 26, BUN 6, creatinine 0.5, glucose 123, calcium 9.1. ASSESSMENT AND PLAN: 1. Febrile illness with leukocytosis, no more fever and the leukocytes are normal today. She had fever upon admission on 12/06/2016. CT of the abdomen, pelvis and renal CT are negative for acute pathology. I do not have any specific source of infection. No photophobia and no signs of meningeal irritation, we asked for a lumbar puncture but the patient refused these. Infectious Disease Department following this patient. 2. Abdominal pain, nausea and diarrhea. No more diarrhea but she is still complaining of abdominal pain, she has generalized tenderness but her pain mostly is at the level of the right abdominal area, no signs of peritoneal irritation. Gastroenterology department evaluated this patient and they did a gastric emptying study which showed severe gastroparesis. 3. Type 2 diabetes. Hemoglobin A1c 6.6. Continue with the same management. 4. Hyperlipidemia. Continue with the same management. 5. Physical deconditioning. Physical therapy is on board. cc: Hernando Mata MD
--- NOTE | 2016-12-10 15:44 | PROGRESS NOTE ---
DATE: 12/10/2016 Today this patient had a gastric emptying study that basically showed severe gastroparesis. The case was discussed with Gastroenterology Department, Dr. Amaral, who suggested to put this patient on Reglan 2.5 mg with meals and at bedtime. I explained the whole situation to the patient and I talked to her about the treatment. I told her the risks and benefits of the metoclopramide including adverse reactions like neurological problems including extrapyramidal syndrome, dystonia, parkinsonism, tardive dyskinesia, even seizures. Also heart problems including CHF, hypertension, hematological problems including leukopenia and neutropenia, even a granulocytosis, and also reactions like drowsiness, restlessness, fatigue, anxiety, even confusion, and problems with the menstrual periods. She seems to understand and she wants the treatment anyway. So I will start this patient on Reglan 2.5 mg with each meal and also at bedtime. cc: Hernando Mata MD
[2016-12-10] MEDS: REGLAN PO SCH ×2 (16:37→20:58)
[2016-12-10] MEDS: PROTONIX IV SCH (22:44)
[2016-12-10] MEDS: SODIUM CHLORIDE 0.9% INJ SCH (22:44)
[2016-12-11] MEDS: NS 1,000 ML IV SCH ×4 (05:07→22:58)
[2016-12-11] MEDS: ROCEPHIN 1 GM/NS 1 GM/50 ML IVPB IV SCH ×2 (05:08→17:12)
[2016-12-11] MEDS: NS IV SCH ×2 (05:08→15:17)
[2016-12-11] MEDS: ZOVIRAX IV SCH ×2 (05:08→15:17)
[2016-12-11] MEDS: REGLAN PO SCH ×4 (06:10→21:08)
[2016-12-11] MEDS: HUMALOG SUBQ SCH ×4 (06:12→21:08)
[2016-12-11] MEDS: ICAR-C PO SCH ×2 (09:08→21:08)
[2016-12-11] MEDS: PRINIVIL PO SCH (09:08)
[2016-12-11] MEDS: CENTRUM SILVER PO SCH (09:08)
[2016-12-11] MEDS: VANCOMYCIN 1,200 MG in NS 250 ML IV SCH ×2 (12:20→22:58)
--- NOTE | 2016-12-11 13:49 | PROGRESS NOTE ---
DATE: 12/11/2016 SUBJECTIVE: This patient states that she is feeling better. She is still complaining of abdominal pain and mild neck pain but she denies nausea or vomiting. We will advance the diet to see how she does. We will continue with Reglan 4 times a day. OBJECTIVE: Vital Signs: Temperature 97.8 degrees, pulse 51, respiratory rate 17, blood pressure 124/53, oxygen saturation 99 on room air. HEENT: Head normocephalic. No trauma. PERRLA. Neck: Supple. No JVD. No masses. Central trachea. Chest: Clear to auscultation. No wheezing. No rales. Abdomen: Soft. Generalized tenderness to palpation but mostly at the level of the right side of the abdomen. Compared with yesterday it is much better. No rebound. Positive bowel sounds. Extremities: No edema. No clubbing. No cyanosis. Neurological: The patient is alert and oriented x3. She moves all 4 extremities. No signs of meningeal irritation. LABORATORY: Glucose 151. ASSESSMENT AND PLAN: 1. Febrile illness with leukocytosis. No more fever since admission on 12/06/2016. CT of the abdomen and pelvis and renal CT were negative for acute pathology. We asked for a lumbar puncture but she refused. Infectious disease department is following this patient as well. 2. Abdominal pain, nausea, and vomiting. We have a positive result for severe gastroparesis. We started this patient on Reglan 4 times a day at low dose 2.5 mg and she seems to tolerate that and it looks like she is getting better. We will continue with the same management. We will advance the diet. 3. Type 2 diabetes. Hemoglobin A1c 6.6. Continue with the same management. 4. Hyperlipidemia. Continue with the same treatment. 5. Physical deconditioning. Physical therapy is on board. cc: Hernando Mata MD
[2016-12-11] MEDS: MIRALAX PO SCH (15:33)
--- NOTE | 2016-12-11 16:51 | PROGRESS NOTE ---
DATE: 12/11/2016 SUBJECTIVE: The patient speaks limited Amharic. We discovered that her gastric emptying study shows profound gastroparesis. Dr. Fang discussed the risks and benefits of Reglan use including EPS with the patient. She has agreed to initiate therapy with Reglan 2.5 mg p.o. 4 times a day. According to the nursing staff, she was able to tolerate more of her diet today. RECOMMENDATIONS: 1. Continue gastroparesis diet. 2. Continue Reglan 2.5 mg p.o. 4 times a day. 3. I would advance her diet to a regular diet with 4 small meals over the course of the day. 4. Because she is anemic and we found no evidence of blood loss on EGD, she should undergo an outpatient colonoscopy for further evaluation of her microcytic anemia. 5. Have the patient return to clinic 2-3 weeks following hospital discharge. She will need to have a family member with her who speaks Amharic so that we are able to instruct her on the bowel prep for her colonoscopy. cc: MD Hernando Kumar MD
--- NOTE | 2016-12-11 18:03 | OPERATIVE NOTE ---
PROCEDURE DATE: 12/09/2016 REFERRING PHYSICIAN: Dr. Hernando Fang MD. INDICATION FOR PROCEDURE: 1. Nausea with vomiting. 2. Abdominal pain. 3. Diarrhea. 4. Unexplained fever on admission. PROCEDURE PERFORMED: Esophagogastroduodenoscopy with biopsy. CONSENT: Informed consent was obtained from the patient prior to the procedure using the language line. The risks, benefits and alternatives were discussed with the patient by Dr. Blaze Charlton MD. MEDICATIONS: The patient received monitored anesthesia care. PERFORMING PHYSICIAN: Stacia Amaral MD. ASSISTANTS: 1. Sosa Collazo RN. 2. Hang Santana RN. 3. Tim Busby CRNA. 4. Josh Medina MD (anesthesia). COMPLICATIONS: There were no complications. ESTIMATED BLOOD LOSS: Less than 1 mL. SPECIMENS REMOVED: 1. Duodenal biopsy. 2. Gastric biopsy. FINDINGS: After sedation was achieved, the upper endoscope was inserted to the 2nd portion of the duodenum. The hypopharynx appeared endoscopically normal. The tubular esophagus was normal with no varices or Rapp's mucosa seen. The GE junction was irregular at 32 cm. There was a hiatal hernia that spanned from 32-36 cm. In the gastric lumen, there was nonerosive gastritis that was biopsied in the antrum, fundus and body. It was noted that the stomach had marked decrease in motility which was worrisome for gastroparesis. The pylorus appeared endoscopically normal. The duodenum appeared endoscopically normal. However, due to the patient's history of diarrhea, biopsies were taken. After the exam was complete, the lumen was decompressed and the scope was removed without incident. IMPRESSION: 1. Irregular gastroesophageal junction at 32 cm. 2. Hiatal hernia. 3. Nonerosive gastritis. 4. Normal-appearing duodenum. RECOMMENDATION: 1. Await biopsy results. 2. Check gastric emptying study in the morning as I suspect she has gastroparesis. 3. Continue Protonix. 4. The patient was noted to have anemia on labs. I recommend outpatient colonoscopy for further evaluation. 5. We will have the patient return to clinic in 2-4 weeks following hospital discharge. She is encouraged to have a family member who speaks [place] to come to clinic with her so we are able to instruct her on the bowel prep for colonoscopy. cc: Stacia MunirMD Hernando mcintosh MD
--- NOTE | 2016-12-11 19:56 | PROGRESS NOTE ---
DATE: 12/11/2016 PRESENT ILLNESS: The patient previously had been having fever and headache and abdominal pain. Her fever is gone away and today she indicated to me that her headaches are gone, too. She still is having some abdominal pain. MEDICATIONS: Patient as far as antibiotics go, is on a combination of acyclovir, Rocephin and vancomycin. PHYSICAL EXAMINATION: Vital Signs: Temperature is 98.2 degrees, pulse 78, respirations 18, blood pressure 135/75. Generally: This is a less ill-appearing middle-aged female. She is in no acute distress. Lungs: Clear to auscultation. Cardiovascular: Regular heart rate. Abdomen: Soft and nontender. Neck: No meningismus. Neurologic: The patient is awake. She is talking. She can move all of her extremities. LABORATORY AND X-RAY: The CBC for today showed a white count of 6590, hemoglobin 11.6, and platelet count 253,000. Blood cultures are negative. The gastric emptying's studies showed gastroparesis. ASSESSMENT AND PLAN: 1. As regarding infection, I think possibly the patient did not have one or if she did, it looks like she is getting over it. My plan now is to discontinue her antimicrobial agents. I am going to 1st start today with acyclovir and keep going with Rocephin and vancomycin. 2. Comorbidities include diabetes mellitus and cigarette smoking. cc: Martinez Nunez MD
[2016-12-11] MEDS: SODIUM CHLORIDE 0.9% INJ SCH (21:08)
[2016-12-11] MEDS: PROTONIX IV SCH (22:58)
[2016-12-12] MEDS: NS 1,000 ML IV SCH (04:34)
[2016-12-12] MEDS: ROCEPHIN 1 GM/NS 1 GM/50 ML IVPB IV SCH ×2 (04:34→17:22)
[2016-12-12] MEDS: REGLAN PO SCH ×3 (06:16→17:01)
[2016-12-12] MEDS: HUMALOG SUBQ SCH ×3 (06:17→17:01)
[2016-12-12] MEDS ORDERED: LANTUS SUBQ SCH (09:00)
[2016-12-12] MEDS: VANCOMYCIN 1,200 MG in NS 250 ML IV SCH (11:00)
[2016-12-12] MEDS: ICAR-C PO SCH (11:00)
[2016-12-12] MEDS: PRINIVIL PO SCH (11:01)
[2016-12-12] MEDS: MIRALAX PO SCH (11:01)
[2016-12-12] MEDS: CENTRUM SILVER PO SCH (11:01)
[2016-12-12 17:12] VITALS: BP 148/65
--- NOTE | 2016-12-12 17:33 | DISCHARGE SUMMARY ---
ADMISSION DATE: 12/06/2016 DISCHARGE DATE: 12/12/2016 CONSULTATIONS: 1. Dr. Martinez Nunez with Infectious Disease. 2. Dr. Charlton with Gastroenterology. 3. Dr. Radha Mccullough with Neurology. PERTINENT PROCEDURES: 1. Abdomen and pelvis CT. Negative exam. 2. Lumbar spine x-ray. Some minimal degenerative disk disease. No acute disease or change from prior. 3. Head CT. Negative exam. 4. Brain MRI. Microvascular white matter changes. No evidence of acute disease. 5. Gastric emptying study, 1100 minutes, showed severe gastroparesis. 6. EGD with biopsy, performed by Dr. Amaral. DISCHARGE DIAGNOSES: 1. Febrile illness with leukocytosis. No more fever since admission. CT of the abdomen and pelvis and renal CT were negative for acute pathology. We asked for a lumbar puncture. The patient refuses. ID department was following the patient as well. 2. Abdominal pain, nausea and vomiting. She did have a gastric emptying study that showed severe gastroparesis. She was started on Reglan 4 times a day. She underwent an EGD with biopsy with Dr. Amaral. Suggested that she follow up for colonoscopy secondary to her anemia. 3. Headache, neck pain, mild confusion with elevated white count. Again, patient refused lumbar puncture. No source of infection could be found in her workup. Evaluated by Neurology. Now stable. 4. Diabetes mellitus type 2. Hemoglobin A1c 6.6. 5. Hyperlipidemia. Continue statin. HOSPITAL COURSE: Ms. Henderson is a 60-year-old, [facility] female who came to the ED with complaints of nausea, vomiting, diarrhea for 2 days. Stated she had a UTI over the past 3 months and developed nausea and vomiting 2 days ago as well as fever the day before of an unknown temperature. She also complained of dysuria but states that had been going on for some time. Her main complaint was abdominal pain that was right flank pain and she started having a severe headache while in the emergency room. She also had back and neck pain, diarrhea and malaise. The patient did need an sign language interpreter. She is from [facility]. In the ED, she was noted to have a temperature of [address] of the abdomen and pelvis as well as the head was done and a renal CT. It not show anything significant. Her urinalysis was clear. Blood cultures were obtained. They have been negative. Clostridium difficile studies have remained negative. She was initially admitted for a febrile illness with leukocytosis of unknown etiology. She was given vancomycin and Rocephin. For abdominal pain she was given pain medicine and antiemetics with a consult for GI. Started on Protonix. Dr. Martinez Nunez with Infectious Disease was brought on board, given her complaint of neck and low back pain. He felt we should consider meningitis or possible osteomyelitis of the spine or some type of spinal epidural abscess could be the cause her pain so he treated the patient with vancomycin, acyclovir, and Rocephin. He did a lumbar spine x-ray that just showed degenerative disk disease but no acute disease. He put in a consult for Neurology for possible lumbar puncture. Neurology ordered a brain MRI that did not show anything acute, however the patient refused a lumbar puncture. GI placed the patient on a clear liquid diet until her pain resolved. Started her Icar C for her anemia. Scheduled her for an EGD. It did show a hiatal hernia and nonerosive gastritis. They ordered a gastric emptying study. They did suspect gastroparesis. Her emptying study did show severe gastroparesis at 1100 minutes. She was started on Reglan 4 times a day. The patient has been febrile free since admission. There have been obvious signs of infection. Dr. Martinez Nunez did discontinue her antimicrobial agents and kept her going with Rocephin and vancomycin. Dr. Fang feels she is appropriate for discharge home today. VITAL SIGNS: Temperature is 98 degrees, heart rate 52, respirations 20, blood pressure 152/62, O2 is 99% on room air. DISCHARGE DIET: Regular but 4 small meals a day, given her new diagnosis of gastroparesis. DISCHARGE MEDICATIONS: Per Dr. Fang. DISPOSITION: Beatriz is being discharged home with her daughter. DISCHARGE INSTRUCTIONS: Followup: Dr. Amaral would like to see her back in the office in 2-4 weeks following her discharge. Encouraged her to have a family member who speaks Nepali to come to the clinic with her so they were able to instructor on her bowel prep for her colonoscopy. Diet: She is to follow a regular diet with dietary changes given her gastroparesis she has a regular with meals small meals daily and keep her carbohydrates in even amounts. Choose low fat foods. Fat slows down stomach emptying. Choose softer foods to ease digestion and chew foods well before swallowing. Drink fluids throughout the meal and sit upright or walk after meals The patient can return to the ED for any worsening of symptoms. Dictated by DARYL Lenz for Hernando Mata MD cc: Hernando Mata MD
== END 2016-12-12 17:50 | disposition home or self-care (01) ==
LOC: ED 17:20 → SUATTDRO 22:42 → 3N 22:42
PROVIDERS: ATTEND Internal Medicine